=== PATIENT | male | born 1965 ===

== ENCOUNTER 2016-06-24 16:00 | Emergency (ER) | payer BC ==
[2016-06-24 16:10] VITALS: BP 139/95
--- NOTE | 2016-06-24 16:36 | UC ---
UC General HPI - HPI Summary HPI Summary: Hx of gout, has had increasing pain and swelling in the right great toe. no other complaints - History of Current Complaint Chief Complaint: UCLowerExtremity Stated Complaint: RIGHT FOOT PAIN/HX GOUT Time Seen by Provider: 06/24/16 16:19 Hx Obtained From: Patient Onset/Duration: Sudden Onset, Lasting Days Timing: Constant Onset Severity: Moderate Current Severity: Severe - Allergy/Home Medications Allergies/Adverse Reactions: Allergies Allergy/AdvReac Type Severity Reaction Status Date / Time Ibuprofen Allergy Difficulty Verified 06/24/16 16:10 Swallowing PMH/Surg Hx/FS Hx/Imm Hx Previously Healthy: Yes - Surgical History Surgical History: Yes Surgery Procedure, Year, and Place: left shoulder. right knee. umbilical hernia - Family History Known Family History: Positive: Respiratory Disease - Social History Alcohol Use: Occasionally Substance Use Type: None Smoking Status (MU): Never Smoked Tobacco Review of Systems Constitutional: Negative Skin: Bruising - ane erythema of right great toe Eyes: Negative ENT: Negative Respiratory: Negative Cardiovascular: Negative Gastrointestinal: Negative Genitourinary: Negative Motor: Negative Neurovascular: Negative Musculoskeletal: Arthralgia Neurological: Negative Psychological: Negative All Other Systems Reviewed And Are Negative: Yes Physical Exam Triage Information Reviewed: Yes Appearance: Well-Appearing, Pain Distress, Obese Vital Signs: Initial Vital Signs Temp 98.3 F 06/24/16 16:06 Pulse 67 06/24/16 16:06 Resp 16 06/24/16 16:06 BP 139/95 06/24/16 16:06 Pulse Ox 99 06/24/16 16:06 Vital Signs Reviewed: Yes Eye Exam: Normal Eyes: Positive: Conjunctiva Clear ENT Exam: Normal ENT: Positive: Normal ENT inspection, Hearing grossly normal, Pharynx normal, TMs normal Dental Exam: Normal Neck exam: Normal Respiratory Exam: Normal Respiratory: Positive: Chest non-tender, Lungs clear, Normal breath sounds Cardiovascular Exam: Normal Cardiovascular: Positive: RRR, No Murmur, Pulses Normal Abdominal Exam: Normal Abdomen Description: Positive: Nontender, No Organomegaly, Soft Bowel Sounds: Positive: Present Musculoskeletal: Positive: Strength Intact, Strength Limited @ - in right foot, ROM Limited @ - in right great toe due to pain and swelling, Edema @ - in the right great toe Neurological Exam: Normal Psychological Exam: Normal Skin: Positive: Other - redness and bruising right great toe Course/Dx - Course Course Of Treatment: hx obtained, exam performed. meds prescribed. treated for gout - Differential Dx - Multi-Symptom Provider Diagnoses: gout exacerbation Discharge - Discharge Plan Condition: Stable Disposition: HOME Prescriptions: predniSONE TAB* [Deltasone TAB*] 10 mg PO DAILY #3 tab predniSONE TAB* [Deltasone TAB*] 20 mg PO DAILY #30 tab Patient Education Materials: Gout (ED) Referrals: YVES Joe [Primary Care Provider] - Additional Instructions: take the prednisone as prescribed. Follow up with any worsening symptoms.
== END 2016-06-24 16:46 | disposition home or self-care (01) ==
LOC: UCCORT 16:00
DX: M10.071 Idiopathic gout, right ankle and foot (principal); E66.9 Obesity, unspecified; Z88.6 Allergy status to analgesic agent
CPT/HCPCS: 99202; G0463

== ENCOUNTER 2017-07-26 11:29 | Emergency (ER) | payer BC ==
[2017-07-26 12:52] VITALS: BP 128/86
--- NOTE | 2017-07-26 13:30 | UC ---
Lower Extremity/Ankle HPI - HPI Summary HPI Summary: Pt here w/ return of gout in Rt hallux. Started yesterday - worse today. Has had flair-ups in the past - they seem to occur in the spring (only change he realizes is that he eats lots of fresh fruit). Denies medical conditions otherwise and just had PE within the year w/ PCP. Denies fever, chills, N/V/D, numbness, tingling, weakness. No injury. Noticed yesterday while ambulating and worse as day went on - red, tender to touch. - History of Current Complaint Hx Obtained From: Patient Pain Intensity: 5 <Desiree Montague - Last Filed: 07/26/17 13:25> <Keisha Odom - Last Filed: 07/26/17 20:32> - History of Current Complaint Chief Complaint: UCLowerExtremity Stated Complaint: RIGHT FOOT COMPLAINT Time Seen by Provider: 07/26/17 13:14 - Allergies/Home Medications Allergies/Adverse Reactions: Allergies Allergy/AdvReac Type Severity Reaction Status Date / Time ibuprofen Allergy Swelling Verified 07/26/17 12:49 PMH/Surg Hx/FS Hx/Imm Hx - Additional Past Medical History Additional PMH: Gout Previously Healthy: Yes - Surgical History Surgical History: Yes Surgery Procedure, Year, and Place: left shoulder. right knee. umbilical hernia - Family History Known Family History: Positive: Respiratory Disease - Social History Lives: With Family Alcohol Use: Rare Substance Use Type: None Smoking Status (MU): Never Smoked Tobacco <Desiree Montague - Last Filed: 07/26/17 13:25> Review of Systems Constitutional: Negative Skin: Other - red toe Motor: Negative Neurovascular: Negative Musculoskeletal: Arthralgia Neurological: Negative Psychological: Negative Is Patient Immunocompromised?: No All Other Systems Reviewed And Are Negative: Yes <Desiree Montague - Last Filed: 07/26/17 13:25> Physical Exam Triage Information Reviewed: Yes Appearance: Well-Appearing, Obese Vital Signs: Initial Vital Signs Temp 98 F 07/26/17 12:47 Pulse 77 07/26/17 12:47 Resp 16 07/26/17 12:47 BP 128/86 07/26/17 12:47 Pulse Ox 98 07/26/17 12:47 Vital Signs Reviewed: Yes Eye Exam: Normal ENT Exam: Normal Respiratory Exam: Normal Cardiovascular Exam: Normal Musculoskeletal: Positive: Strength Intact, Other: - Rt hallux TTP Neurological Exam: Normal Psychological Exam: Normal Skin Exam: Other - erythema Rt hallux - TTP, warm <Desiree Montague - Last Filed: 07/26/17 13:25> Vital Signs: Initial Vital Signs Temp 98 F 07/26/17 12:47 Pulse 77 07/26/17 12:47 Resp 16 07/26/17 12:47 BP 128/86 07/26/17 12:47 Pulse Ox 98 07/26/17 12:47 <Keisha Odom - Last Filed: 07/26/17 20:32> Lower Extremity Course/Dx - Differential Dx/Diagnosis Provider Diagnoses: Gout, Rt toe <Desiree Montague - Last Filed: 07/26/17 13:25> Discharge - Sign-Out/Discharge Documenting (check all that apply): Discharge/Admit/Transfer - Billing Disposition and Condition Condition: STABLE Disposition: HOME <Desiree Montague - Last Filed: 07/26/17 13:25> - Billing Disposition and Condition Condition: STABLE Disposition: HOME <Keisha Odom - Last Filed: 07/26/17 20:32> - Discharge Plan Condition: Stable Disposition: HOME Prescriptions: predniSONE TAB* [Deltasone TAB*] 40 mg PO DAILY PRN #30 tab PRN Reason: Pain Patient Education Materials: Low Purine Diet (ED), Gout (ED) Referrals: Holli Mosley PA [Primary Care Provider] - Additional Instructions: Take 40mg daily until pain and redness resolve - once this improves, you may taper down to 30mg daily x 3 days then 20 mg daily x 3 days then 10mg daily x 3 days for a duration of about 2 weeks. If symptoms last longer or you develop rebound pain (return of redness/swelling after finishing prednisone), follow-up with PCP. Attestation Statement User Type: Provider - I was available for consult. This patient was seen by the SAMUEL. The patient was not presented to, seen by, or examined by me. -Mandi <Keisha Odom - Last Filed: 07/26/17 20:32>
== END 2017-07-26 13:36 | disposition home or self-care (01) ==
LOC: UCCORT 11:29
DX: M10.9 Gout, unspecified (principal); Z88.6 Allergy status to analgesic agent
CPT/HCPCS: 99212; G0463

== ENCOUNTER 2018-04-20 17:11 | Emergency (ER) | payer BC ==
[2018-04-20] MEDS ORDERED: Albuterol/Ipratropium NEB.SOL* Albuterol 2.5 MG/Ipratropium 0.5 MG 3 ML INH ONE (17:25)
--- NOTE | 2018-04-20 18:06 | UC ---
Respiratory Complaint HPI - HPI Summary HPI Summary: Patient presents to urgent care with acute onset of coughing that started after [place]. Patient states he felt little bit lightheaded he was coughing so hard. Patient states he had a slight cough earlier today but nothing like this. Patient denies feeling short of breath. Patient denies headache or lightheadedness at this time. No chest pain. No nausea vomiting. No ear pain, sinus congestion. Patient states he had a slight tickle in his throat today for which she has been using cough drops with good results. Patient does not smoke tobacco. Patient does not have a history of lung disease. 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 Patient's medications reviewed this visit. Of note, patient's blood pressure was markedly elevated today. Patient states he does not have a history of hypertension. - History of Current Complaint Chief Complaint: UCGeneralIllness Stated Complaint: COUGH,TROUBLE BREATHING Time Seen by Provider: 04/20/18 18:04 Hx Obtained From: Patient Onset/Duration: Sudden Onset Severity Initially: Mild Severity Currently: None Pain Intensity: 0 Character: Cough: Nonproductive - Allergies/Home Medications Allergies/Adverse Reactions: Allergies Allergy/AdvReac Type Severity Reaction Status Date / Time ibuprofen Allergy Swelling Verified 04/20/18 17:21 PMH/Surg Hx/FS Hx/Imm Hx Previously Healthy: Yes Respiratory History: Bronchitis, Pneumonia - Surgical History Surgical History: Yes Surgery Procedure, Year, and Place: left shoulder. right knee. umbilical hernia - Family History Known Family History: Positive: Respiratory Disease - Social History Occupation: Employed Full-time Alcohol Use: Rare Substance Use Type: None Smoking Status (MU): Never Smoked Tobacco Review of Systems All Other Systems Reviewed And Are Negative: Yes Constitutional: Positive: Negative Skin: Positive: Negative Eyes: Positive: Negative Respiratory: Positive: Cough Physical Exam - Summary Physical Exam Summary: Vital Signs Reviewed: Yes A+Ox3, persistent coughing paroxysm Eyes: Conjunctiva Clear, ELEAZAR. EOM intact and full ENT: Hearing grossly normal TM x 2 clear, mmoist, uvula midline, no exudate, no erythema Neck: Positive: Supple Respiratory: Positive: persistent coughing paroxysm, no wheeze, increased RR Cardiovascular: RRR nl s1, s2 no m/r CBT <2 sec abd soft + BS nt/nd no guarding, no distension Musculoskeletal Exam: ODEN x 4 without difficulty Strength Intact, ROM Intact Neurological: Positive: Alert, + sensation throughout Psychological: Positive: Normal Response To Family Skin: Positive: no rash, no ecchymosis Triage Information Reviewed: Yes Vital Signs: Initial Vital Signs Temp 96.5 F 04/20/18 17:17 Pulse 90 04/20/18 17:17 Resp 22 04/20/18 17:17 BP 153/104 04/20/18 17:17 Pulse Ox 100 04/20/18 17:17 Diagnostic Evaluation - Laboratory O2 Sat by Pulse Oximetry: 100 Re-Evaluation - Re-Evaluation First Eval Comment: Patient markedly improved following DuoNeb. Patient states he feels great. Patient without any coughing. Lungs continued to be clear with no wheeze. No increased respiratory rate. Repeat blood pressure improved. Discussed with patient plan of care. Will give patient a MDI with a spacer as well as a 5 day course of prednisone. Strict return precautions. Patient comfortable in agreement with plan. Also recommended recommended patient humidify room results. repeat BP improved -s till slightly elevated - recommed f/u with pcp Respiratory Course/Dx - Course Course Of Treatment: Patient presents with a sudden onset of coughing paroxysm following driving through smoking condition on the highway. Patient without a history of lung disease or asthma. Patient states he feel short of breath because he can't catch his breath. On exam patient with coarse persistent cough. We'll give a DuoNeb and reassessed. - Differential Dx/Diagnosis Provider Diagnosis: Bronchospasm Discharge - Sign-Out/Discharge Documenting (check all that apply): Patient Departure All imaging exams completed and their final reports reviewed: No Studies - Discharge Plan Condition: Stable Disposition: HOME Prescriptions: Albuterol HFA INHALER* [Ventolin HFA Inhaler*] 2 puff INH Q4H PRN #1 mdi PRN Reason: wheeze Inhaler, Assist Devices [Aerochamber Mv] 1 each PO Q4HR #1 spacer predniSONE TAB* [Deltasone TAB*] 50 mg PO DAILY #5 tab Patient Education Materials: Bronchospasm (ED) Referrals: Holli Mosley PA [Primary Care Provider] - Additional Instructions: - use your inhaler - 2 puffs every 4 hours today and tomorrow, then every 4hours as needed - Take prednisone daily as prescribed - humidify the air in the room where you sleep - boil water, run a hot steam shower, vaporizer, cups of water by heat register - Contact your doctor, call 911, go to the emergency department or return here with questions or concerns As discussed, your blood pressure was elevated today - contact your doctor for a recheck - Billing Disposition and Condition Condition: STABLE Disposition: Home
[2018-04-20 19:42] VITALS: BP 148/91
== END 2018-04-20 18:20 | disposition home or self-care (01) ==
LOC: UCCORT 17:11
DX: J98.01 Acute bronchospasm (principal); Z87.01 Personal history of pneumonia (recurrent); Z88.8 Allergy status to other drugs, medicaments and biological substances
CPT/HCPCS: 99212; A9270-GY; G0463